=== PATIENT | female | born 1955 | race Caucasian/White ===

== ENCOUNTER 2020-03-26 11:31 | Emergency (ER) | payer OTHER, SELFPAY ==
--- NOTE | ~2020-03-26 | XR_ITS ---
EXAMINATION: XR chest 2V EXAM DATE: 03/26/2020 11:52 INDICATION: Right anterior chest wall pain. TECHNIQUE: Frontal and lateral projections of the chest obtained and reviewed. There is no prior sonia dy for comparison. FINDINGS: The lungs are clear. There are no pleural effusions. The cardiomediastinal silhouette is within normal limits. There is no pneumothorax suspected. The bones and soft tissues are unremarkab le. IMPRESSION: No acute cardiopulmonary findings. Reviewed, dictated and finalized at location A.
[2020-03-26 11:35] VITALS: BP 166/85; PULSE 89; RESP 14; TEMP 37.3; O2SAT 99
--- NOTE | 2020-03-26 11:43 | ED.GENADULT ---
HPI - General Adult General Chief complaint: Chest Pain Stated complaint: Pain under right breast Time Seen by Provider: 03/26/20 11:53 Source: patient History of Present Illness HPI narrative: PATIENT PRESENTS WITH RIGHT RIB PAIN UNDER RIGHT BREAST. NO SHORTNESS OF BREATH AND NO CHEST PAIN. PATIENT STATES SHE HAS NOT STARTED ANY NEW ACTIVITIES AND DENIES ANY INJURIES. PATIENT STATES SHE HAS A HISTORY OR COSTOCONDRITIS. Related Data Allergies Allergy/AdvReac Type Severity Reaction Status Date / Time No Known Allergies Allergy Unverified 07/17/19 13:00 Review of Systems Review of Systems: Narrative: CONSTITUTIONAL: Denies fever, chills, or sweats. EYES: Denies visual changes, redness, or discharge. ENT: Denies rhinorrhea, congestion, sore throat, or otalgia. CARDIOVASCULAR: Denies chest pain, palpitations, or edema. RESPIRATORY: Denies cough or dyspnea. GASTROINTESTINAL: Denies abdominal pain, nausea, vomiting, or diarrhea. GENITOURINARY: Denies dysuria or hematuria. SKIN: Denies rash or itching. MUSCULOSKELETAL: Denies back pain, joint pain, or myalgia. NEUROLOGIC: Denies headache, numbness, or weakness. PSYCHIATRIC: Denies anxiety or depression. PMFSH Social History Social History Smoking status: Never smoker Alcohol intake: current Comments At time of signature, agree with nursing past medical, surgical, social and family history. There is no relevant family history pertinent to the presenting complaint Exam Narrative: Exam Narrative: GENERAL: Well-appearing, well-nourished, and in no acute distress. HEAD: Normocephalic, atraumatic. EYES: PERRLA and EOMI. ENT: Nares clear, no rhinorrhea or epistaxis. Mucous membranes moist. NECK: Supple. CHEST: Clear to auscultation. No respiratory distress. ALL PAIN REPRODUCIBLE. RIB TENDER. NO CREPITUS OR SQ EMPHYSEMA OR DEFORMITY OR STEP OFFS. NO ECCHYMOSIS OR LESIONS. HEART: Regular rate and rhythm. No murmur heard. Normal peripheral pulses. ABDOMEN: Soft, nontender, nondistended, normal active bowel sounds. EXTREMITIES: Normal range of motion. No edema. SKIN: Warm, dry, no rash. NEURO: No focal deficits. Alert and oriented x3. Arti Coma Scale Eye Opening: Spontaneous 4 [place]ow Coma Scale Motor: Obeys Commands 6 Arti Coma Scale Verbal: Oriented 5 Arti Coma Scale Total 15 Course Vital Signs Vital signs: Vital Signs Temperature 37.3 C 03/26/20 11:35 Pulse Rate 89 03/26/20 11:35 Respiratory Rate 14 03/26/20 11:35 Blood Pressure 166/85 H 03/26/20 11:35 Pulse Oximetry 99 03/26/20 11:35 Temperature 37.3 C 03/26/20 11:35 Pulse Rate 89 03/26/20 11:35 Respiratory Rate 14 03/26/20 11:35 Blood Pressure 166/85 H 03/26/20 11:35 Pulse Oximetry 99 03/26/20 11:35 At time of signature, agree with nursing past medical, surgical, social and family history. There is no relevant family history pertinent to the presenting complaint Please ALLEGRA schedule a followup visit with your personal physician for further evaluation and treatment. Including recheck and discussion of your blood pressure. If your symptoms persist, change or worsen significantly before you can contact your personal physician then please, without delay, go to the emergency department for further evaluation Medical Decision Making Vital Signs Vital Signs: Vital Signs Temperature 37.3 C 03/26/20 11:35 Pulse Rate 89 03/26/20 11:35 Respiratory Rate 14 03/26/20 11:35 Blood Pressure 166/85 H 03/26/20 11:35 Pulse Oximetry 99 03/26/20 11:35 Temperature 37.3 C 03/26/20 11:35 Pulse Rate 89 03/26/20 11:35 Respiratory Rate 14 03/26/20 11:35 Blood Pressure 166/85 H 03/26/20 11:35 Pulse Oximetry 99 03/26/20 11:35 Critical Care Time Critical Care Time Critical Care Time: No Discharge Plan Discharge Clinical Impression: Costalchondritis, Rib pain on right side Patient Dispositi
== END 2020-03-26 12:18 | disposition home or self-care (01) ==
PROVIDERS: Emergency Provider Nurse Practitioner Family; PCP Family Medicine
DX: M94.0 Chondrocostal junction syndrome [Tietze] (principal); E78.00 Pure hypercholesterolemia, unspecified; I10 Essential (primary) hypertension
CPT/HCPCS: 71046; 99213; G0463

== ENCOUNTER 2020-04-21 17:27 | Outpatient (CLI) | payer OTHER, SELFPAY ==
--- NOTE | ~2020-04-21 | MM_ITS ---
EXAMINATION: MM screening [facility] w marvin HISTORY: Screening mammogram, family history of breast cancer in her mother. TECHNIQUE: Craniocaudal and mediolateral oblique 3-D tomosynthesis images were obtained and synthetic 2-D images were generated. CAD analysis was submitted and interpreted. COMPARISON: No prior mammogram is available for comparison at this institution. BREAST PARENCHYMAL COMPOSITION: There are scattered areas of fibroglandular density. FINDINGS: There is no evidence of suspicious mass, calcification, or architectural distortion to sugg est malignancy in either breast. IMPRESSION: 1. No mammographic evidence of malignancy. 2. Recommend routine screening mammography in one year. BI-RADS Category 1: Negative Reviewed, dictated and finalized at location A.
== END 2020-04-21 17:28 | disposition home or self-care (01) ==
PROVIDERS: PCP Family Medicine; Visit Provider Family Medicine
DX: Z12.31 Encounter for screening mammogram for malignant neoplasm of breast (principal)
CPT/HCPCS: 77063; 77067

== ENCOUNTER 2020-09-09 16:44 | Outpatient (CLI) | payer OTHER, SELFPAY | END 2020-09-09 16:45 | disposition home or self-care (01) | LOC: ANHCOVIDVC 16:44 | PROVIDERS: PCP Family Medicine | DX: Z23 Encounter for immunization (principal) | CPT/HCPCS: 0001A; 91300 ==

== ENCOUNTER 2020-09-30 17:27 | Outpatient (CLI) | payer OTHER, SELFPAY | END 2020-09-30 17:28 | disposition home or self-care (01) | LOC: ANHCOVIDVC 17:27 | PROVIDERS: PCP Family Medicine | DX: Z23 Encounter for immunization (principal) | CPT/HCPCS: 0002A; 91300 ==

== ENCOUNTER 2020-11-18 16:39 | Outpatient (CLI) | payer OTHER, SELFPAY ==
--- NOTE | ~2020-11-18 | XR_ITS ---
XR lumbar spine 2-3V 11/18/2020 16:56 Indication: Low back pain Procedure: 3 views lumbar spine Comparison: No prior studies for comparison. Findings: Mild levocurvature of the lumbar spine. There is disc narrowing at L4-5 and L5-S1. No there are mild facet degenerative changes of the lower lumbar spine. No acute fracture, subluxation or spo ndylolisthesis. Sacral foramen are symmetric. Coarse calcifications of the pelvis are partially visua lized, likely due to underlying fibroid changes. Visualized bowel gas pattern nonobstructive. Impression: 1: Mild lumbar spondylosis. Reviewed, dictated and finalized at location A. Impression: 1: Mild lumbar spondylosis.
== END 2020-11-18 16:40 | disposition home or self-care (01) ==
LOC: ANHIMG 16:43
PROVIDERS: PCP Physician Assistant Medical; Visit Provider Physician Assistant Medical
DX: R20.0 Anesthesia of skin (principal); M47.896 Other spondylosis, lumbar region
CPT/HCPCS: 72100

== ENCOUNTER → 2021-04-28 14:14 | Outpatient (CLI) | payer OTHER, SELFPAY ==
--- NOTE | ~2021-04-28 | US_ITS ---
EXAMINATION: US thyroid EXAM DATE: 04/28/2021 14:42 INDICATION: E04.9 - Nontoxic goiter, unspecified. TECHNIQUE: Multiple grayscale and Doppler images of the thyroid were obtained (by a technologist who performed the scan) and subsequently reviewed. Individual nodules and recommendations may be reporte d in accordance with TI-RADS system as designated by the 2017 ACR White Paper TI-RADS committee. The re is no prior study for comparison. FINDINGS: The right thyroid lobe measures 6.2 x 3.4 x 3.0 cm, the left measuring 6.9 x 3.4 x 3.8 cm. Dimensions are severely enlarged, likely due to bilateral thyroid nodules. Largest right thyroid lobe nodule measures 4.3 x 3.4 x 3.0 centimeters, solid (2 points), hypoechoic (2 points), wider than tall, smooth well defined margin, without echogenic foci, category TR4 for thi s nodule. Largest left thyroid lobe nodule measures 3.8 x 3.5 x 4.5 cm, solid (2 points), hypoechoic (2 points) , wider than tall, smooth well defined margin, containing macrocalcification(s) causing acoustic shad owing (1 point), category TR4 for this nodule. IMPRESSION: Multinodular goiter; the largest left and right thyroid lobe nodules large enough to nataliia tad ultrasound-guided FNA under current recommendations. Reviewed, dictated and finalized at location A. IMPRESSION: Multinodular goiter; the largest left and right thyroid lobe nodule s large enough to indicate ultrasound-guided FNA under current recommendations.
== END ==
PROVIDERS: PCP Physician Assistant Medical; Visit Provider Nurse Practitioner Family
DX: E04.2 Nontoxic multinodular goiter (principal)
CPT/HCPCS: 76536

== ENCOUNTER 2021-05-29 09:04 | Outpatient (CLI) | payer OTHER, SELFPAY ==
--- NOTE | ~2021-05-29 | US_ITS ---
EXAMINATION: 1. US FNA w image guidance 2. US FNA additional DATE: 05/29/2021 10:23 INDICATION: Bilateral thyroid nodules. TECHNIQUE: The procedure and its benefits and risks were discussed with the patient. Risks specifically discusse d included bleeding. The patient verbalized understanding of the risks and agreed to proceed. The nec k was prepped and draped in the usual sterile manner. 1% lidocaine was used for local anesthesia. 5 passes were made with a 25G needle into the lesion in right thyroid lobe under ultrasound guidance. 5 passes were made with a 25-gauge needle into the lesion in left thyroid lobe under ultrasound ray nce. There were no immediate complications. The patient understood to call the ordering physician for results after a week and a half and verbalized that understanding. FINDINGS: Grayscale ultrasound images demonstrate needles advanced into a 4.3 cm nodule in right thyroid lobe f or biopsy. Grayscale ultrasound images demonstrate needles advanced into a 4.5 cm nodule in left thyr oid lobe for biopsy. IMPRESSION: 1. Ultrasound-guided fine needle aspiration of a right thyroid nodule. 2. Ultrasound-guided fine-needle aspiration of a left thyroid nodule. Reviewed, dictated and finalized at location A. S SMITH HELPER IMPRESSION: 1. Ultrasound-guided fine needle aspiration of a right thyroid nodule. 2. Ultrasound-guided fine-needle aspiration of a left thyroid nodule.
== END 2021-05-29 09:05 | disposition home or self-care (01) ==
LOC: ANHIMG 09:06
PROVIDERS: PCP Physician Assistant Medical; Visit Provider Nurse Practitioner Family
DX: E04.1 Nontoxic single thyroid nodule (principal)
CPT/HCPCS: 10005; 10006; 88173; 88305

== ENCOUNTER → 2021-06-07 16:23 | Outpatient (CLI) | payer OTHER, SELFPAY ==
--- NOTE | ~2021-06-07 | MM_ITS ---
EXAMINATION: MM screening [facility] BI w marvin HISTORY: Screening mammogram TECHNIQUE: Craniocaudal and mediolateral oblique 3-D tomosynthesis images were obtained and synthetic 2-D images were generated. CAD analysis was submitted and interpreted. COMPARISON: 04/21/2020 bilateral screening mammogram BREAST PARENCHYMAL COMPOSITION: There are scattered areas of fibroglandular density. FINDINGS: There is no evidence of suspicious mass, calcification, or architectural distortion to sugg est malignancy in either breast. There has been no suspicious interval change. IMPRESSION: 1. No mammographic evidence of malignancy. 2. Recommend routine screening mammography in one year. BI-RADS Category 1: Negative Reviewed, dictated and finalized at location A. ITE MAN
== END ==
PROVIDERS: PCP Family Medicine; Visit Provider Family Medicine
DX: Z12.31 Encounter for screening mammogram for malignant neoplasm of breast (principal)
CPT/HCPCS: 77063; 77067

== ENCOUNTER 2022-02-01 01:42 | Day surgery (SDC) | payer OTHER, SELFPAY ==
[2022-01-15 15:05] VITALS: BMI 26.6
--- NOTE | 2022-01-31 14:43 | P.HP_ITS ---
History of Present Illness History of Present Illness Consent: Risks, benefits, and alternatives have been discussed and questions answered. Patient agrees to proceed with procedure. Chief complaint: change in bowel habits, diarrhea Narrative: Hannah Drew is a 66 year old female Who has had watery diarrhea for the past several weeks. She has not had fever. There has not been blood in her stools. After several weeks of severe diarrhea her symptoms are improving. It has been 10 years since her last colonoscopy for Review of Systems Review of Systems: All systems reviewed & are unremarkable except as noted in HPI and below PMFSH Past Medical History Medical History BMI 25.0-25.9,adult BMI 26.0-26.9,adult BMI 27.0-27.9,adult BMI 30.0-30.9,adult BMI 31.0-31.9,adult BMI 32.0-32.9,adult Change in stool habits Thyroid nodule Family History Family History Father Heart disease Mother Diabetes mellitus Breast cancer Sibling No problems noted. 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 Gender identity (if verbalized by the patient): Female Spiritual care concerns: No Meds Home Medications and Allergies Home Medications Medication Instructions Recorded Confirmed Type blood sugar diagnostic (Accu-Chek #100 ea 01/23/21 01/15/22 Rx Wendy Plus test strips) blood-glucose meter (Accu-Chek #1 ea 01/23/21 01/15/22 Rx Wendy Plus Meter) lancets (Accu-Chek Softclix #100 ea 01/23/21 01/15/22 Rx Lancets) betamethasone dipropionate 0.05 % 1 applic topical DAILY PRN rash 12/25/21 01/15/22 Rx lotion #60 mL amlodipine 2.5 mg tablet 2.5 mg PO HS 01/15/22 01/15/22 History atorvastatin 20 mg tablet 20 mg PO HS 01/15/22 01/15/22 History azelastine 137 mcg (0.1 %) nasal 1 spray intranasal Q12H PRN 01/15/22 01/15/22 History spray aerosol Congestion lisinopril 40 mg tablet 40 mg PO HS 01/15/22 01/15/22 History metformin 500 mg tablet,extended 500 mg PO HS 01/15/22 01/15/22 History release 24 hr Allergies Allergy/AdvReac Type Severity Reaction Status Date / Time No Known Allergies Allergy Verified 01/15/22 15:06 Exam Const: General: alert Orientation/consciousness: patient oriented x3 Resp: Auscultation: clear to auscultation bilaterally Cardio: Rhythm: regular rhythm GI: GI Palp: Yes Soft to palpation and No Tenderness to palpation present (GI) Neuro: General: patient oriented x3 Assessment and Plan Assessment and plan (1) Change in stool habits: Code(s): R19.4 - Change in bowel habit Status: Acute Assessment and Plan: Colonoscopy with possible biopsy or polypectomy or cautery or injection of substances.
[2022-02-01 06:39] VITALS: BMI 26.1
[2022-02-01 06:41] VITALS: BP 163/71; PULSE 87; RESP 16; TEMP 36.6; O2SAT 100
[2022-02-01 06:52] LABS: Glucose Point of Care 91 mg/dl (65-105)
[2022-02-01] MEDS: LACTATED RINGERS 1,000 ML 150 ML IV CONT (06:52)
--- NOTE | 2022-02-01 07:26 | WPDANESEPPF ---
Anes - Initial Pre Proc Eval Procedure: Operation Date: 02/01/22 08:00 Proposed Procedures p Colonoscopy - Brock Kelley MD Date/Time: 02/01/22 07:26 Surgeon: Brock Kelley MD Pre Op Diagnosis: change in bowel habits, diarrhea Patient Data Age: 66 Gender: F Height: 1.65 m Weight: 71.2 kg Last Vital Signs Temp 97.8 F 02/01/22 06:41 Pulse 87 02/01/22 06:41 Resp 16 02/01/22 06:41 BP 163/71 H 02/01/22 06:41 Pulse Ox 100 02/01/22 06:41 Allergies Allergy/AdvReac Type Severity Reaction Status Date / Time No Known Allergies Allergy Verified 01/15/22 15:06 Home Medications Medication Instructions Recorded Confirmed Type blood sugar diagnostic (Accu-Chek #100 ea 01/23/21 01/15/22 Rx Wendy Plus test strips) blood-glucose meter (Accu-Chek #1 ea 01/23/21 01/15/22 Rx Wendy Plus Meter) lancets (Accu-Chek Softclix #100 ea 01/23/21 01/15/22 Rx Lancets) betamethasone dipropionate 0.05 % 1 applic topical DAILY PRN rash 12/25/21 01/15/22 Rx lotion #60 mL amlodipine 2.5 mg tablet 2.5 mg PO HS 01/15/22 01/15/22 History atorvastatin 20 mg tablet 20 mg PO HS 01/15/22 01/15/22 History azelastine 137 mcg (0.1 %) nasal 1 spray intranasal Q12H PRN 01/15/22 01/15/22 History spray aerosol Congestion lisinopril 40 mg tablet 40 mg PO HS 01/15/22 01/15/22 History metformin 500 mg tablet,extended 500 mg PO HS 01/15/22 01/15/22 History release 24 hr Laboratory Tests 02/01/22 06:46 POC Capillary Glucose 91 mg/dl mg/dl (65-105) Patient hx anesthesia problems: none Family hx anesthesia problems: none Results Review: All pre-operative results and documents have been reviewed as part of the pre-operative evaluation. [facility] Past Medical History Medical History (Updated 12/22/21 @ 14:27 by Kirt Zhang MD) BMI 25.0-25.9,adult BMI 26.0-26.9,adult BMI 27.0-27.9,adult BMI 30.0-30.9,adult BMI 31.0-31.9,adult BMI 32.0-32.9,adult Change in stool habits Thyroid nodule Family History Family History Father Heart disease Mother Diabetes mellitus Breast cancer Sibling No problems noted. 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 Informed Consent: The patient's anesthetic plan and its attendant risks and benefits were discussed with the patient/family/POA. Questions were solicited and answers provided to the satisfaction of the patient/family/POA.
[2022-02-01 08:16] VITALS: BP 113/61; PULSE 65; RESP 21; O2SAT 99
[2022-02-01 08:26] VITALS: BP 105/66; PULSE 65; RESP 24; O2SAT 98
[2022-02-01 08:36] VITALS: BP 123/71; PULSE 61; RESP 20; O2SAT 100
== END 2022-02-01 08:38 | disposition home or self-care (01) ==
PROVIDERS: PCP Family Medicine; Visit Provider Internal Medicine Gastroenterology
PROC: 0DJD8ZZ Inspection of Lower Intestinal Tract, Via Natural or Artificial Opening Endoscopic (ICD-10-PCS; CPT 45378; principal; 2022-02-01 08:00)
DX: Z12.11 Encounter for screening for malignant neoplasm of colon (principal); R19.7 Diarrhea, unspecified
CPT/HCPCS: 45378; 82948; J2704; J7120

== ENCOUNTER 2022-09-27 17:24 | Outpatient (CLI) | payer OTHER, SELFPAY ==
--- NOTE | ~2022-09-27 | MM_ITS ---
EXAMINATION: MM screening [facility] [place] BI w marvin HISTORY: Screening TECHNIQUE: Craniocaudal and mediolateral oblique 3-D tomosynthesis images were obtained and synthetic 2-D images were generated. CAD analysis was submitted and interpreted. COMPARISON: Comparison to multiple prior studies sequentially, with oldest reviewed study dated 03/25. BREAST PARENCHYMAL COMPOSITION: There are scattered areas of fibroglandular density. FINDINGS: There is no evidence of suspicious mass, calcification, or architectural distortion to sugg est malignancy in either breast. There has been no suspicious interval change. IMPRESSION: 1. No mammographic evidence of malignancy. 2. Recommend routine screening mammography in one year. BI-RADS Category 1: Negative Reviewed, dictated and finalized at location A.
== END 2022-09-27 17:25 | disposition home or self-care (01) ==
PROVIDERS: PCP Family Medicine; Visit Provider Physician Assistant Medical
DX: Z12.31 Encounter for screening mammogram for malignant neoplasm of breast (principal)
CPT/HCPCS: 77063; 77067

== ENCOUNTER 2023-11-29 07:17 | Outpatient (CLI) | payer OTHER, SELFPAY ==
--- NOTE | ~2023-11-29 | MM_ITS ---
EXAMINATION: MM screening [facility] BI w marvin HISTORY: Screening TECHNIQUE: Craniocaudal and mediolateral oblique 3-D tomosynthesis images were obtained and synthetic 2-D images were generated. CAD analysis was submitted and interpreted. COMPARISON: Comparison to multiple prior studies sequentially, with oldest reviewed study dated 03/25. BREAST PARENCHYMAL COMPOSITION: Not dense: There are scattered areas of fibroglandular density. FINDINGS: There is no evidence of suspicious mass, calcification, or architectural distortion to sugg est malignancy in either breast. There has been no suspicious interval change. IMPRESSION: 1. No mammographic evidence of malignancy. 2. Recommend routine screening mammography in one year. BI-RADS Category 1: Negative Reviewed, dictated and finalized at location B.
== END 2023-11-29 07:18 | disposition home or self-care (01) ==
LOC: ANHIMG 07:20
PROVIDERS: PCP Family Medicine; Visit Provider Physician Assistant Medical
DX: Z12.31 Encounter for screening mammogram for malignant neoplasm of breast (principal)
CPT/HCPCS: 77063; 77067

== ENCOUNTER 2024-12-24 08:35 | Outpatient (CLI) | payer OTHER, SELFPAY ==
--- NOTE | ~2024-12-24 | MM_ITS ---
EXAMINATION: MM screening hillary BI w marvin HISTORY: Screening mammogram, family history of breast cancer in her mother. TECHNIQUE: Craniocaudal and mediolateral oblique 3-D tomosynthesis images were obtained and synthetic 2-D images were generated. CAD analysis was submitted and interpreted. COMPARISON: 11/29/2023, 09/27/2022, 06/07/2021 BREAST PARENCHYMAL COMPOSITION:Not Dense. There are scattered areas of fibroglandular density. FINDINGS: No suspicious mass, calcification, or architectural distortion are identified in either cleo ast to suggest malignancy. There has been no suspicious interval change. IMPRESSION: No mammographic evidence of malignancy. Recommend routine screening mammography in one year. BI-RADS Category 1: Negative Reviewed, dictated and finalized at location .
--- OUTSIDE RECORDS SUMMARY | 2024-12-24 08:41 | XMS_ITS | Clinical Summary ---
Author Organization [facility] Address [address], [facility] [address] [place] [address] Phone Care Team Providers Care Hospital Laboratory Technician Name Role Phone Unavailable Primary Care Provider Unavailabl e Allergies No known active allergies Medications RESTASIS 0.05 % Emulsion 1 Drop daily. 6 Active azelastine (ASTELIN) 0.1 % SolutionIndications :PNAR (perennial non-allergic rhinitis) 2 Sprays by Nasal route 2 times daily. 2sprays in each nostril BID 1 Bottle 11 7 Active Aug Betamethasone Dipropionate (DIPROLENE) 0.05 % LotionIndications:E czema, unspecified type Apply to scalp and ear daily as directed 60 mL 7 Active fluticasone (FLONASE) 50 MCG/ACT SuspensionIndicatio ns:PNAR (perennial non-allergic rhinitis) 2 Sprays by Nasal route daily. Use in each nostril as directed. 3 Bottle 3 8 Active Polyethylene Glycol 3350 (MIRALAX PO) Take by mouth. Active lisinopril (PRINIVIL, ZESTRIL) 20 MG TabletIndications:E ssential hypertension Take 1 Tab by mouth daily. 90 Tab 2 9 Active atorvastatin (LIPITOR) 20 MG TabletIndications:M ixed hyperlipidemia Take 1 Tab by mouth daily. 90 Tab 2 9 Active Active Problems Problem Noted Date Diagnosed Date QUETA (obstructive sleep apnea) 04/11/2018 Sleep deprivation 04/11/2018 Mixed hyperlipidemia 10/10/2017 Multinodular thyroid 10/10/2017 Chronic fatigue 10/09/2016 HTN (hypertension) IBS (irritable bowel syndrome) Immunizations Immunization Administration Dates Next Due Influenza Vaccine 04/23/2018 Influenza Vaccine, Quadrivalent, PF 03/28/2015 Family History Medical History Relation Name Comments Congestive Heart Failure Father Breast Cancer Mother Cancer Mother Relation Name Status Comments Father Mother Social History Tobacco Use Types Packs/Day Years Used Date Smoking Tobacco: Never Smokeless Tobacco: Never Tobacco Cessation:Counseling Given: No Alcohol Use Standard Drinks/Week Comments No 0 (1 standard drink = 0.6 oz pur e alcohol) Comments No Sex and Gender Information Value Date Recorded Sex Assigned at Not on file Legal Sex Female 12:05 AM CDT Gender Identity Not on file Sexual Orientation Not on file Last Filed Vital Signs Vital Sign Reading Time Taken Comments Blood Pressure 128/86 01/14/2019 3:15 PM CDT Pulse 81 01/14/2019 3:15 PM CDT Temperature 36.5 C (97.7 F) 01/14/2019 3:15 PM CDT Respiratory Rate 14 01/14/2019 3:15 PM CDT Oxygen Saturation 98% 01/14/2019 3:15 PM CDT Inhaled Oxygen Concentration - - Weight 91.2 kg (201 lb) 01/14/2019 3:15 PM CDT Height 165.1 cm (5' 5) 01/14/2019 3:15 PM CDT Body Mass Index 33.45 01/14/2019 3:15 PM CDT Plan of Treatment Health Maintenance Due Date Last Done Comments Hepatitis C Virus (HCV) Screening 1955 TdaP Immunization 1956 Cologuard 2001 Colonoscopy 2001 Colorectal Cancer Screening 2001 Immunochemical Fecal Occult Blood 2001 Pneumococcal Immunization (5 0+ years) (1 of 1 - PCV) 2006 Zoster Immunization (1 of 2) 2006 SARS-COV-2 Immunization (3 - season) 2024 09/30/2020, 09/09/2020 Influenza Immunization (Seas on Ended) 2025 04/23/2018, 03/28/2015 Respiratory Syncytial Virus (RSV) Immunization (Adult) (1 - 1-dose 75+ series) 10/14/2031 Mammogram Discontinued 10/30/2018, 10/04/2017, 04/16/2016 Hepatitis B Immunization Aged Out No longer eligible based on patient's age to complete this topic Human Papillomavirus (HPV) Immunization Aged Out No longer eligible based on patient's age to complete this topic Meningococcal Immunization (ACWY) Aged Out No longer eligible based on patient's age to complete this topic Rotavirus Immunization Aged Out No lo nger eligible based on patient's age to complete this topic Procedures Procedure Name Priority Date/Time Associated Diagnosis Comments ARIES SCREENING BILATERAL DIGITAL W CAD W CHICO Routine 10/30/2018 6:26 AM CDT Encounter for screening mammogram for malignant neoplasm of breast from Last 3 Months or Most Recently Relevant to Health Maintenance Results * ARIES SCREENING BILATERAL DIGITAL W CAD W CHICO (10/30/2018 6:26 AM CDT) Anatomical Region Laterality Modality breast Bilateral Mammography 10/30/2018 6:05 AM CDT Narrative 10/30/2018 12:52 PM CDT - ARIES SCREENING BILATERAL DIGITAL W CAD W CHICO BILATERAL DIGITAL SCREENING MAMMOGRAM 3D/2D WITH CAD WITH MEDIOLATERAL OBLIQUE CRANIOCAUDAL: 10/30/2018 The study was acquired using digital technology and interpreted from soft copy. Current study was also evaluated with ICAD version 7.2. CLINICAL: Routine screening. Patient has no complaints. No personal history of cancer. Mother with postmenopausal breast cancer. COMPARISONS: Comparison is made to exams dated: 10/04/2017, 04/16/2016, and 09/18/2014 [facility]. BREAST TISSUE:There are scattered fibroglandular densities in both breasts. FINDINGS: No significant masses, calcifications, or other findings are seen in either breast. There has been no significant interval change. IMPRESSION: BI-RAD 1 NEGATIVE There is no mammographic evidence of malignancy. A 1 year screening mammogram is recommended. The patient has been or will be contacted. The patient will be entered into a reminder system with a target due date of 1 year for her next screening exam. Electronically signed by: Alina bernard/penrad:10/30/2018 12:21:45 Real Estate Economist: Daylin Phillips (R)), [facility] letter sent: Normal Exam Reading location: [place] BI-RADS: 1 Negative Procedure Note Alina Castillo MD - 10/30/2018 - ARIES SCREENING BILATERAL DIGITAL W CAD W CHICO BILATERAL DIGITAL SCREENING MAMMOGRAM 3D/2D WITH CAD WITH MEDIOLATERAL OBLIQUE CRANIOCAUDAL: 10/30/2018 The study was acquired using digital technology and interpreted from soft copy. Current study was also evaluated with ICAD version 7.2. CLINICAL: Routine screening. Patient has no complaints. No personal history of cancer. Mother with postmenopausal breast cancer. COMPARISONS: Comparison is made to exams dated: 10/04/2017, 04/16/2016, and 09/18/2014 [facility]. BREAST TISSUE:There are scattered fibroglandular densities in both breasts. FINDINGS: No significant masses, calcifications, or other findings are seen in either breast. There has been no significant interval change. IMPRESSION: BI-RAD 1 NEGATIVE There is no mammographic evidence of malignancy. A 1 year screening mammogram is recommended. The patient has been or will be contacted. The patient will be entered into a reminder system with a target due date of 1 year for her next screening exam. Electronically signed by: Alina Castillo M.D. /michael:10/30/2018 12:21:45 Real Estate Economist: Daylin Phillips (R)), [facility]: Normal Exam Reading location: [place] BI-RADS: 1 Negative Mayra Mejia [facility] IMG MAMMO ORDERABLES Final Result from Last 3 Months or Most Recently Relevant to Health Maintenance
--- OUTSIDE RECORDS SUMMARY | 2024-12-24 08:41 | XMS_ITS | Clinical Summary ---
Author Organization [facility] [address] Address [address] [place] [address] Phone Care Team Providers Care Seam Press Operator Name Role Phone Kirt Zhang MD Primary Care Provider [phone] Allergies No known active allergies Medications amLODIPine (NORVASC) 2.5 mg tablet Take 2.5 mg by mouth daily 10/27/2021 Active atorvastatin (LIPITOR) 20 mg tablet Take 20 mg by mouth daily 10/10/2017 Active lisinopriL (PRINIVIL,ZESTRI L) 40 mg tablet Take 40 mg by mouth daily 08/19/2021 Active metFORMIN XR (GLUCOPHAGE XR) 500 mg 24 hr tablet Take 500 mg by mouth daily 10/02/2021 Active Active Problems Problem Noted Date Diagnosed Date Benign hypertension 11/07/2013 Overview (09/28/2016): BENIGN HYPERTENSION Eczema herpeticum 11/07/2013 Overview (09/28/2016): ECZEMA HERPETICUM Adiposity 11/07/2013 Overview (09/28/2016): OBESITY NOS Surgical History Surgery Date Site/Laterality Comments OTHER SURGICAL HISTORY contraception: Bilateral tubal ligation Medical History Medical History Date Comments Hx Other Medical contraception Hypertension Hyperlipidemia Family History Medical History Relation Name Comments Coronary artery disease Father Joss nary artery disease, premature; Stroke Father Stroke; Breast cancer Mother Cancer -breast ; Diabetes type II Mother Diabetes -T ype II; Relation Name Status Comments Father Mother Social History Tobacco Use Types Packs/Day Years Used Date Smoking Tobacco: Never Alcohol Use Standard Drinks/Week Comments No 0 (1 standard drink = 0.6 oz pur e alcohol) Comments No Sex and Gender Information Value Date Recorded Sex Assigned at Not on file 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 Gender Identity Not on file Sexual Orientation Not on file 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 Start Date Job 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 [employer]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 [employer] Not on file Not on file No t on file Obstetrics History Para Term AB IAB SAB Ectopic Multiple Livin g Live Births 2 2 2 2 2 Date Outcome GA Total Labor Labor/2nd/3rd Weight Sex Type Anes PTL Barb A1 A5 Name Clin 1976 Term 3.175 kg (7 lb) M Vag-S pont Living 1982 Term 4.026 kg (8 lb 14 oz) M Vag-S pont Living Last Filed Vital Signs Vital Sign Reading Time Taken Comments Blood Pressure 140/52 10/31/2021 9:05 AM CDT Pulse - - Temperature - - Respiratory Rate - - Oxygen Saturation - - Inhaled Oxygen Concentration - - Weight 74.3 kg (163 lb 12.8 oz) 10/31/2021 9:05 AM CDT Height 166.4 cm (5' 5.5) 10/31/2021 9:05 AM CDT Body Mass Index 26.84 10/31/2021 9:05 AM CDT Plan of Treatment Health Maintenance Due Date Last Done Comments Breast Cancer Screening-Mammogram 1955 Colon Cancer Screening-Colonoscopy 1956 Depression Screening 1956 Fall Risk Assessment 1955 Hepatitis C Screening 1956 DTaP/Tdap/Td Vaccine (1 - Tdap) 10/14/1967 Hepatitis B Screening 1974 Pneumococcal vaccine 65+ (1 of 1 - PCV) 2006 Zoster Vaccine (1 of 2) 2006 Well Visit 65+ 10/31/2022 10/31/2021 Osteoporosis Screening-Bone Density Scan 11/14/2023 11/13/2021 Covid-19 Vaccine ( season) 2024 07/15/2021, 09/30/2020, 09/09/2020 Influenza Vaccine (Season Ended) 2025 04/23/20 18, 03/28/2015 Procedures Procedure Name Priority Date/Time Associated Diagnosis Comments DEXA AXIAL SKELETON BONE DENSITY 1 OR MORE SITES Schedule Routine, Read Routine (OP Routine) 11/13/2021 8:05 AM CDT Screening for osteoporosis from Last 3 Months or Most Recently Relevant to Health Maintenance Results * Dexa Axial Skeleton Bone Density 1 or 2 Site (11/13/2021 8:05 AM CDT) Anatomical Region Laterality Modality Body N/A Other 11/13/2021 11:2 1 AM CDT Narrative 11/13/2021 11:22 AM CDT EXAM DESCRIPTION: DEXA AXIAL SKELETON BONE DENSITY 1 OR MORE SITES REASON FOR STUDY: 66 y/o year old F with given history of screening. 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 FINDINGS: AP LUMBAR SPINE L1-L4: Total BMD is 0.949 g/cm2 T-score is -0.9 LEFT HIP: Total BMD is 0.839 g/cm2 T-score is -0.8 Femoral neck BMD is 0.604 g/cm2 T-score is -2.2 FRAX: 10 year risk for a major osteoporotic fracture is 21 %, 10 year risk for a hip fracture is 1.9 % IMPRESSION: Based on the left femoral neck bone mineral density (T-score -2.2) the patient has low bone mass. REFERENCE: Bone mineral density: Normal (T-score above or = -1.0) Low bone mass (T-score between -1.0 and -2.5) replaces the previously used term osteopenia Osteoporosis (T-score = or below -2.5) Medical evaluation for secondary causes of low bone mineral density may be appropriate. FRAX is a World Health Organization validated fracture risk assessment tool that calculates a person's 10 year probability of a major osteoporosis related fracture and hip fracture. According to the National Osteoporosis Foundation guidelines, postmenopausal women and men age 50 or older with low bone mass and a 10 year probability of a major osteoporosis related fracture = or greater than 20% or a 10 year probability of a hip fracture = or greater than 3% should be considered for treatment. For further information, including treatment recommendations, please refer to the 2013 ISCD Official Positions (http://www.iscd.org) and the NOF's Clinician's Guide to Prevention and Treatment of Osteoporosis (http://www.nof.org/professionals/clinical-guidelines) THIS IS AN ELECTRONICALLY VERIFIED FINAL REPORT 11/13/2021 11:22 AM - Electronically signed by Mitchell Riddle M.D. MF: CON Report ID: [id number] Reading Location: [id number] Procedure Note Mitchell Riddle MD - 11/13/2021 EXAM DESCRIPTION: DEXA AXIAL SKELETON BONE DENSITY 1 OR MORE SITES REASON FOR STUDY: 66 y/o year old F with given history ofscreening. 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 FINDINGS: AP LUMBAR SPINE L1-L4: Total BMD is 0.949 g/cm2 T-score is -0.9 LEFT HIP: Total BMD is 0.839 g/cm2 T-score is -0.8 Femoral neck BMD is 0.604 g/cm2 T-score is -2.2 FRAX: 10 year risk for a major osteoporotic fracture is 21 %, 10 year risk for ahip fracture is 1.9 % IMPRESSION: Based on the left femoral neck bone mineral density (T-score -2.2) the patient has low bone mass. REFERENCE: Bone mineral density: Normal (T-score above or = -1.0) Low bone mass (T-score between -1.0 and -2.5) replaces thepreviously used term osteopenia Osteoporosis (T-score = or below -2.5) Medical evaluation for secondary causes of low bone mineral density may be appropriate. FRAX is a World Health Organization validated fracture risk assessmenttool that calculates a person's 10 year probability of a major osteoporosisrelated fracture and hip fracture. According to the National OsteoporosisFoundation guidelines, postmenopausal women and men age 50 or older with low bonemass and a 10 year probability of a major osteoporosis related fracture = or greater than 20% or a 10 year probability of a hip fracture = or greaterthan 3% should be considered for treatment. For further information, including treatment recommendations, please referto the 2013 ISCD Official Positions (http://www.iscd.org) and the NOF's Clinician's Guide to Prevention and Treatment of Osteoporosis (http://www.nof.org/professionals/clinical-guidelines) THIS IS AN ELECTRONICALLY VERIFIED FINAL REPORT 11/13/2021 11:22 AM - Electronically signed by Mitchell Riddle M.D. MF: CON Report ID: [id number] Reading Location: [place] [id number] [place] Cady Rai DO IMG DXA PROCEDURES Kisha l Result from Last 3 Months or Most Recently Relevant to Health Maintenance Insurance [facility] [place] [address] Care Teams Seam Press Operator Relationship Specialty Start Date End Date Kirt Zhang MD PCP - General 11/13/21
--- OUTSIDE RECORDS SUMMARY | 2024-12-24 08:41 | XMS_ITS | Clinical Summary ---
Author Organization [facility] Address [address] [place] [address] Care Team Providers Care Sponge Maker Name Role Phone Mayra Mejia PA-C Primary Care Provider Mariely vailable Source Comments [facility],non-owned Affiliates and Associated Physician Practices is amultiple site organization consisting of ambulatory clinics and hospital sitesin [place], [place], [place] and [place]. This disclosure is being madepursuant to the Care Everywhere program and may not contain all information available regarding this patient. Last updated 18.[facility] Allergies No known active allergies Medications * Be aware that medications may not be up to date on this document. Alwaysverify current medications with the patient. lisinopril (PRINIVIL; ZESTRIL) 20 MG tablet 04/02/2017 Active cycloSPORINE (RESTASIS) 0.05 % ophthalmic suspension 06/09/2017 Active atorvastatin (LIPITOR) 20 MG tablet Take 20 mg by mouth 10/10/2017 Active Family History Medical History Relation Name Comments Asthma Father CVA Father Hyperlipidemia Father Cancer - Other Mother Dementia Mother Eczema Mother Glaucoma Mother Hypertension Mother Relation Name Status Comments Father Mother Social History Tobacco Use Types Packs/Day Years Used Date Smoking Tobacco: Never Smokeless Tobacco: Never Alcohol Use Standard Drinks/Week Comments No 0 (1 standard drink = 0.6 oz pur e alcohol) Comments No Sex and Gender Information Value Date Recorded Sex Assigned at Not on file Legal Sex Female 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 Gender Identity Female 06/13/2018 8:23 AM ASIC DESIGN ENGINEER Sexual Orientation Not on file Last Filed Vital Signs Vital Sign Reading Time Taken Comments Blood Pressure 168/86 06/13/2018 9:11 AM ASIC DESIGN ENGINEER Pulse 78 06/13/2018 9:11 AM ASIC DESIGN ENGINEER Temperature 37.1 C (98.7 F) 06/13/2018 9:11 AM ASIC DESIGN ENGINEER Respiratory Rate 16 06/13/2018 9:11 AM ASIC DESIGN ENGINEER Oxygen Saturation 98% 06/13/2018 9:11 AM ASIC DESIGN ENGINEER Inhaled Oxygen Concentration - - Weight 86.2 kg (190 lb) 06/13/2018 9:11 AM ASIC DESIGN ENGINEER Height 165.1 cm (5' 5) 06/13/2018 9:11 AM ASIC DESIGN ENGINEER Body Mass Index 31.62 06/13/2018 9:11 AM ASIC DESIGN ENGINEER Plan of Treatment Health Maintenance Due Date Last Done Comments BONE DENSITY TESTING 1955 COLOGUARD (AGES 45-75) - COL ON CA SCREENING 1956 COLON MONITORING 1956 COLONOSCOPY - COLON CA SCREENING 1956 CT COLONOGRAPHY - COLON CA SCREENING 1955 Colorectal Cancer Screening 1956 FIT - COLON CA SCREENING 1956 FLEX SIG - COLON CA SCREENING 1956 MAMMOGRAM 1956 HEPATITIS C SCREENING 10/09/1974 DTAP/TDAP/TD VACCINES (1 - Tdap) 10/14/1975 PNEUMOCOCCAL VACCINE 50+ (1 of 1 - PCV) 2006 ZOSTER VACCINE (1 of 2) 2006 COVID-19 VACCINE (1 - 2023-2 5 season) 2024 DEPRESSION SCREENING 06/24/2024 INFLUENZA VACCINE (Season Ended) 2025 04/23/2018, 03/28/2015 Respiratory Syncytial Virus (RSV) Vaccine Pt: or over 60 yrs (1 - 1-dose 75+ series) 10/14/2031 HEPATITIS B VACCINE Aged Out No longe r eligible based on patient's age to complete this topic HIB VACCINE Aged Out No longer eligi ble based on patient's age to complete this topic HPV VACCINE Aged Out No longer eligi ble based on patient's age to complete this topic MENINGOCOCCAL (Group B) VACCINE SHARED DECISION-MAKING Aged Out No longer eligible based on patient's age to complete this topic MENINGOCOCCAL GROUPS A/C/Y/W VACCINE Aged Out No longer eligible b ased on patient's age to complete this topic Insurance [facility] Care Teams Sponge Maker Relationship Specialty Start Date End Date Mayra Mejia PA-C PCP - General 06/14/17
--- OUTSIDE RECORDS SUMMARY | 2024-12-24 08:41 | XMS_ITS | Continuity of Care Document ---
Author Organization [facility] Address [address] [place] [address] [place] [phone] Phone Care Team Providers Care Principal Technical Specialist Name Role Phone Mat So MD, FACS Unavailable Unavailab le Allergies, Adverse Reactions, Alerts Substance Reaction Status Criticality No Known Allergies Active No Inform ation Medications Medication Instructions Dosage Effective Dates (start - stop) Status Comments lisinopril 20 mg tablet take 1 tablet by oral route every day 20 MG - Active Restasis 0.05 % eye drops in a dropperette instill 1 drop by ophthalmic route every 12 hours into affected eye(s) 1.00 drop - Active promethazine-DM 6.25 mg-15 mg/5 mL syrup - No Longer Active cephalexin 500 mg capsule - No Longer Active doxycycline hyclate 50 mg capsule take 1 capsule by oral route 2 times every day for 1 month 50 MG - No Longer Active Atenolol 25 mg Tab take 1 tablet (25MG) by ORAL route every day 25 MG - No Longer Active Procedures Procedure Date After Cataract Laser Surgery No Charge Refraction No Charge Optomap Fundus Photos 017 Eye Exam & Treatment No Charge Refraction Eye Exam & Treatment Remove Cataract, Insert Lens Echo Exam Of Eye-Professional 4 Office/outpatient Visit, Est No Charge Refraction No Charge Optomap Fundus Photos 014 Eye Exam & Treatment Office/outpatient Visit, Est After Cataract Laser Surgery Post-op Follow-up Visit Post-op Follow-up Visit Post-op Follow-up Visit Remove Cataract, Insert Lens Office/outpatient Visit, Est Echo Exam Of Eye Office/outpatient Visit, New Advance Directives Directive Yes / No Effective Date File Name No Information Encounters Encounter Description Practice Location Reason(s) For Visit Diagnoses Date Provider Providers Copied on Encounter [facility], [facility] [email or web address], [place], [place], [address], tel:[phone] [place] YAG evaluation (chief complaint) Other secondary cataract, right eyePresence of intraocular lens 7 Judah Rivero. [facility] [address], [address], [place], [place], [address], [place]. tel:[phone] Referring Provider: Winston Taylor OD, [address] [place], [address]. tel:[phone] [facility] [address], [place], [place], [address], [place] tel:[phone] [place] No Information 7 Judah Rivero. [address], [address], [place], [place], [address], [place]. tel:[phone] [facility], [address], [place], [place], [address], [place] tel:[phone] [place] Dry eyes (chief complaint) TEAR FILM INSUFFIC NOSPOST SUBCAP SENILE CATARBENIGN NEOPLASM CHOROID Sep- 0201 5 Leo Rand. [address], [address], [place], [address], [place]. tel:[phone] Referring Provider: Winston Taylor OD, [address] [place], [address]. tel:[phone] [facility], [address] [place] [address] [address], [place], [place], [address], [place] [phone] [facility] [place] No Information 4 Judah Rivero. [facility] [address], [address], [place], [place], [address], [place]. [phone] [facility], [address] [place], [place] [address], [place], [place], [address], [place] [phone] SEC [place] No Information 4 Logan Mat. [facility] [address], [address], [place], [place], [address], [place]. tel:[phone] Referring Provider: Winston Taylor OD, [address] [place], [address]. tel:[phone] Office/outpa tient Visit, [facility], [address] [place], [place] [address] [address], [place], [place], [address], [place] tel:[phone] [place] Professional blurry vision (chief complaint) POST SUBCAP SENILE CATAR 4 Judah Mat. [facility] [address], [address], [place], [place], [address], [place]. tel:[phone] Referring Provider: Winston Taylor OD, [address] [place], [address]. tel:[phone] [facility], [address] [place] [address] [address], [place], [place], [address], [place] tel:[phone] [place] LENS REPLACEMENT NECPOST SUBCAP SENILE CATARBENIGN NEOPLASM CHOROIDTEAR FILM INSUFFIC NOS Aug-0 9-201 3 Jose Elias Green. [address] [facility] [email or web address], [address], [place], [place], [address], [place]. tel:[phone] Referring Provider: Winston Taylor OD, [address], [place], [address]. tel:[phone] Office/outpa tient Visit, [facility], [address], [place], [place], [address], [place] tel:[phone] [place] No Information Dec-1 6-201 1 Jose Elias Green. [address] [facility], [address], [place], [place], [address], [place]. tel:[phone] Referring Provider: Winston Taylor OD, [address] [place], [address]. tel:[phone] [facility], [address], [place], [place], [address], [place] tel:[phone] [place] AFTR-CATAR OBSCUR VISION Dec-1 3-201 1 No Information Referring Provider: Winston Taylor OD, [address] [place], [address]. tel:[phone] [facility], [address], [place], [place], [address], [place] tel:[phone] [place] FOLLOW-UP SURGERY NOSAFTR-CATAR OBSCUR VISION Sep-3 0-201 1 No Information Referring Provider: Winston Taylor OD, [address] [place] [place], [address]. tel:[phone] [facility], [address], [place], [place], [address], [place] tel:[phone] [place] FOLLOW-UP SURGERY NOS Sep-1 6-201 1 Jose Elias Green. [address], [address], [place], [place], [address], [place]. tel:[phone] Referring Provider: Winston Taylor OD, [address] [employer], [place], [address]. tel:[phone] [facility], [address] [place] [address] [address], [place], [place], [address], [place] tel:[phone] [facility] No Information 1 Logan Mat. [address] [employer], [address], [place], [place], [address], [place]. tel:[phone] Referring Provider: Winston Taylor OD, [address] [place], [address]. tel:[phone] Office/outpa tient Visit, [facility], [address] [place] [address] [address], [place], [place], [address], [place] tel:[phone] SEC [place] Professional SENILE NUCLEAR CATARACTPOST SUBCAP SENILE CATAR 1 Judah Mat. [facility] [address] [employer], [address], [place], [place], [address], [place]. tel:[phone] Referring Provider: Winston Taylor OD, [address] [place], [address]. tel:[phone] Office/outpa tient Visit, [facility], [address] [place] [address] [address], [place], [place], [address], [place] tel:[phone] [place] Professional No Information 1 Jose Elias Green. [address], [address], [place], [place], [address], [place]. tel:[phone] Referring Provider: Winston Taylor OD, [address] [employer], [place], [address]. tel:[phone] Family History Family Member Type Diagnosis Age At Onset Aunt Problem (finding) Diabetes mellitus Mother Problem (finding) diabetes melli tus in first degree relative Problem (finding) Payers Payer name Insurance type Covered green party ID Eve hahn(s) [facility] Commercial CI [id number] Social History Type Description Quantity Date Captured Comments Alcohol Use Details No Caffeine Use Details coffee 4 cups per day Tobacco Use Status Never smoked tobacco 2016 Smoking Status Never smoker Non-Smoking Tobacco Use Details : No Details Available : No Details Available Sex Female Chief Complaint And Reason For Visit From encounter dated '12/04/2016 13:15'. YAG evaluation (chief complaint). Description: The 61 year old female presents for YAG evaluation in the right eye and left eye. Hx of PCIOL OU, YAG PC OS, PCO OD, and MAURICE OU. Pt uses Restasis BID OUand AFT BID OU. Pt c/o cloudy VA, OD, x 1 mos, constant. 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 Pt reports having hard time with NV, OD, even when she is wearing her gls. Pt reports glare from headlights at night, OD. Pt reports no pain, irritation, or discomfort today OU. Pt denies flashes of light. Pt reports floaters, OU, x many years, and no change in size or shape. Reason For Referral Reason For Referral No Information History Of Present Illness Encounter Date Complaint History Of Prese nt Illness YAG evaluation The 61 year old female presents for YAG evaluation in the right eye and left eye. Hx of PCIOL OU, YAG PC OS, PCO OD, and MAURICE OU. Pt uses Restasis BID OU and AFT BID OU. Pt c/o cloudy VA, OD, x 1 mos, constant. 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 Pt reports having hard time with NV, OD, even when she is wearing her gls. Pt reports glare from headlights at night, OD. Pt reports no pain, irritation, or discomfort today OU. Pt denies flashes of light. Pt reports floaters, OU, x many years, and no change in size or shape. Dry eyes The 58 year old female presents for a complete exam. Patient started Restasis bid [place] [address] Quarles at [facility]. Patient stated just recently noticed a difference using drops. Patient wants to know if anything else could be done. blurry vision Pt presents for a cataract eval OD. Pt has a hx of Phaco IOL OS and Yag PC OS. Pt having problems with dist and near va in the right eye. Pt c/o floaters in the left. Not taking any gtts. Referred by [facility]. Functional Status Date Functional Assessmen t No Information Instructions Date Instruction Additional Infor ana Impression/Plan - PC F diagnosis discussed with the patient. 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 YAG PC OD understood for treatment, will proceed with laser treatment today. Pt should return to referring in 2-4 weeks. Letter generated and sent to Dr. Taylor Follow up - Follow u p with referring in 2-4 weeks - Dry eyes discussed , there is no evidence of permanent changes to the cornea. Continue Restasis, use warm compresses prn, start Doxy 50 mg 1 tablet BID. Return in 1 year for complete exam or sooner with any problems. Related to See list of assessments above - Return in 1 year w pantera Moctezuma M.D. for Complete Exam Related to See list of assessments above - Cataracts account for the patient's complaints. Discussed all risks, benefits, procedures and recovery. Patient understands changing glasses will not improve vision. Patient desires to have surgery, recommend phacoemulsification with intraocular lens. Related to POST SUBCAP SENILE CATAR - sched ce od ? 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 Related to Choro idal Nevus minimal psc od - observation Rel ated to Cataract, PSC pseudo os with capsu lotomy - no tx needed Related to Pseudophakia - 1yr Related to Pseud ophakia Opacified Capsule, O S - established, worsening - vision affected - will improve with surgery - schedule yag cap os saturday Related to Opacified Capsule Opacified Capsule, O S - established, stable - vision affected - will continue to monitor - will continue to follow for possible yag cap 2 months Related to Opacified Capsule FOLLOW-UP SURGERY NO S, OS - established, stable - vision improved - controlled with meds - finish tobradex taper Related to FOLLOW-UP SURGERY NOS - 1 Month Related to FOLLO W-UP SURGERY NOS - 1 Month Related to Opaci fied Capsule - 2 week po Related to FOLLO W-UP SURGERY NOS FOLLOW-UP SURGERY NO S, OS 1 day PO Phaco with PCIOL OS - Mild PC haze, warned pt might require Yag PC- Pt has gtts Related to FOLLOW-UP SURGERY NOS - sched CE OS 1st Related to Cat aract, PSC Cataract, PSC, OU- e stablished, worsening - vision affectedeczema history- most likely reason for cataract - Cataract(s) accounts for patient's complaints. Discussed all risks, benefits, procedures and recovery. Patient understands changing glasses will not improve vision. Patient desires to have surgery, recommend PE w/IOL.OS 1st- Lifestyle IOL's discussed Info given TECNIS and Crystalens. Pt understands Astigmatism and will need ?LRI if Lifestyle IOL chosen pt will need IOL master orbscan if Lifestyle IOL chosen or if LRI desired,letter to Dr. Taylor Related to Cataract, PSC Assessments Type Assessment Date assessment Other secondary cataract, right eye assessment Presence of intraocular lens Nov Patient Care Teams Name Effective Dates (start - stop) Status Members No Information
--- OUTSIDE RECORDS SUMMARY | 2024-12-24 08:41 | XMS_ITS | Data Portability ---
Author Organization [facility] SI (11) Address [address] [place] [address] Care Team Providers Care Compact Assembler Name Role Phone LARRYCORRINEJORDANA Referring Provider Assessment No assessment recorded. Plan of Treatment Reminders Order Date Submit Date Provider Last Modified By Organization Details Last Modified Time Details Appointments None record ed. Lab None record ed. Referral None record ed. Procedures None record ed. Surgeries None record ed. Imaging None record ed. Medication Orders None record ed. Patient TargetsNo targets recorded. Patient InstructionsNo instructions recorded. Reason for Referral None Reported. Procedures Surgical History Date Name Laterality Status Provider Name and Address Organization Details Recorded Time 01/06/2018 Sleep Study completed [address] [address] [facility] [address], [place], [address], [facility] 01/13/2018 19:18:26 Imaging Results None recorded. Procedure Notes None recorded. Medical Equipment None Reported. Vitals None Recorded Social History None recorded. Functional Status None recorded. Mental Status None recorded. Family History Nothing Reported. Medical History No medical history recorded. Gynecological HistoryNo gynecological history recorded. Obstetrics History GPAL:G 0 P 0 0 0 0 Past Encounters Encounter ID Performer Location Encounter Start Date Encounter Closed Date Diagnosis/Indication Diagnosis SNOMED-CT Code Diagnosis ICD10 Code Diagnosis Note [id number] [facility] [phone]) [phone] [facility] [address] [place] [address] 01/06/2018 16:40:09 01/07/2018 12:18:15 Obstructive sleep apnea of adult 3643867698 103 G47.33 Health Concerns Section Related Observation LastModified by Organization Detai ls LastModified Time None Recorded Concern Status LastModified by Organization Details LastModified Time None Recorded Advance Directives Directive None Recorded Payers Insurance Date Sequence Insurance Name Policy Number Policy Nolan Covered Member ID Nolan Member ID Guarantor Name 01/08/2018 1 [facility] [id number] Hannah Drew [id number] Hannah Daniel Episode No OBEpisode recorded.
--- OUTSIDE RECORDS SUMMARY | 2024-12-24 08:41 | XMS_ITS | Referral Summary ---
Author Organization [facility] [address] Address [address] [place] [address] Phone Care Team Providers Care Fan Engine Engineer Name Role Phone Kirt Zhang MD Primary Care Provider [phone] Allergies No known active allergies Medications amLODIPine [...] HERPETICUM Adiposity 11/07/2013 Overview (09/28/2016): OBESITY NOS Social History Tobacco Use Types Packs/Day Years Used Date Smoking Tobacco: Never Alcohol Use Standard Drinks/Week Comments No 0 (1 standard drink = 0.6 oz pur e alcohol) Comments No Sex and Gender Information Value Date Recorded Sex Assigned at Not on file Legal Sex Female 12:13 AM 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 Cutter Machine/Model: Lookback SL (S/N [id number]) CLINICAL INFORMATION: Current height: 65 inches Maximum [...] Mitchell Riddle M.D. MF: CON Report ID: [id number] Reading Location: [id number] Procedure Note Mitchell Riddle MD - 11/13/2021 EXAM DESCRIPTION: DEXA AXIAL SKELETON BONE DENSITY 1 OR MORE SITES REASON FOR STUDY: 66 y/o year old F with given history ofscreening. Cutter Machine/Model: [employer] (S/N [id number]) CLINICAL INFORMATION: Current height: 65 inches Maximum [...] Electronically signed by Mitchell Riddle M.D. MF: OCN Report ID: [id number] Reading Location: [place] [address] Cady Rai DO IMG DXA PROCEDURES Kisha l Result from Last 3 Months or Most Recently Relevant to Health Maintenance Insurance [facility] [place] [address] Care Teams Fan Engine Engineer Relationship Specialty Start Date End Date Kirt Zhang MD PCP - General 11/13/21
== END 2024-12-24 08:36 | disposition home or self-care (01) ==
LOC: ANHIMG 08:38
PROVIDERS: PCP Family Medicine; Visit Provider Physician Assistant Medical
DX: Z12.31 Encounter for screening mammogram for malignant neoplasm of breast (principal)
CPT/HCPCS: 77063; 77067